=== PATIENT | male | born 1940 | race Caucasian/White ===

== ENCOUNTER → 2018-01-04 | Outpatient (CLI) | payer MEDICARE ==
[~2018-01-04] MED LIST: ALPR.25; ALPR.5 PO; ASPI81CH PO; ATOR20 PO; Aspirin325 MG PO; CLOP75 PO; CYCL10 PO; ESCI10 PO; GI COCKTAIL PO; IRBESARTAN300 MG PO; LANS30EC PO; METO25 PO; NAC600 MG PO; NAPR500ERA PO; NITR.4SL SL; Plavix75 MG PO
== END | disposition home or self-care (01) ==
LOC: PLD 13:35 → LAB SHORT 13:35
DX: L57.0 Actinic keratosis (principal)
CPT/HCPCS: 88305

== ENCOUNTER → 2019-03-20 | Outpatient (CLI) | payer MEDICARE | END | disposition home or self-care (01) | LOC: LAB SHORT 11:51 → PLD 11:51 | DX: L57.0 Actinic keratosis (principal) | CPT/HCPCS: 88305 ==

== ENCOUNTER → 2020-10-08 | Outpatient (CLI) | payer MEDICARE | END | disposition home or self-care (01) | LOC: PLD 11:19 → LAB SHORT 11:19 | DX: D04.4 Carcinoma in situ of skin of scalp and neck (principal); L57.0 Actinic keratosis; L57.8 Other skin changes due to chronic exposure to nonionizing radiation | CPT/HCPCS: 88305 ==

== ENCOUNTER → 2021-10-28 | Outpatient (CLI) | payer MEDICARE | END | disposition home or self-care (01) | LOC: LAB SHORT 11:52 | DX: D04.62 Carcinoma in situ of skin of left upper limb, including shoulder (principal) | CPT/HCPCS: 88305 ==

== ENCOUNTER → 2021-11-17 | Outpatient (CLI) | payer MEDICARE | END | disposition home or self-care (01) | LOC: LAB SHORT 07:19 | DX: D04.62 Carcinoma in situ of skin of left upper limb, including shoulder (principal); D22.62 Melanocytic nevi of left upper limb, including shoulder; Z98.890 Other specified postprocedural states | CPT/HCPCS: 88305 ==

== ENCOUNTER → 2024-07-02 | Outpatient (CLI) | payer MEDICARE | END | disposition home or self-care (01) | LOC: LAB 10:41 → LAB SHORT 10:41 | DX: R30.0 Dysuria (principal) | CPT/HCPCS: 87086 ==

== ENCOUNTER 2025-02-23 12:24 | Day surgery (SDC) | payer MEDICARE ==
[2025-02-23] VITALS (14 sets, daily range): BP systolic 117–141; BP diastolic 39–78
[~2025-02-23] VITALS: Ht 172.7 cm; Wt 94.2 kg
[2025-02-23] MEDS ORDERED: Lactated Ringer's 1,000 ML IV SCH (12:35)
[2025-02-23] MEDS ORDERED: ASPI81CH PO (12:38)
[2025-02-23] MEDS ORDERED: PANT40 PO (12:40)
[2025-02-23] MEDS ORDERED: CeFAZolin Sodium 2,000 MG in NS 100 ML IV SCH (13:15)
--- NOTE | 2025-02-23 13:42 | NUR ---
Ambulatory in Day Surgery History, Chart, Medications and Allergies reviewed before start of procedure.Pre-Op teaching done. Pt verbalizes understanding. Patient States Post-Procedure ride home has been arranged.
[2025-02-23] MEDS ORDERED: propofoL 20 ML IV ONE ×3 (13:58→15:33)
[2025-02-23] MEDS ORDERED: FentaNYL Citrate 50 MCG/ML 2 ML Injection ONE ×3 (13:58→16:05)
[2025-02-23] MEDS ORDERED: Sugammadex Sodium 200 MG/2ML SDV (100 MG/ML) ONE (13:58)
[2025-02-23] MEDS ORDERED: Bupivacaine 0.5% HCl 5 MG/ML 30MLVIAL ONE (13:59)
[2025-02-23] MEDS ORDERED: Rocuronium Bromide 10 MG/ML 5ML Injection IV ONE (14:00)
[2025-02-23] MEDS ORDERED: HYDROmorphone HCl/Pf 1MG SYR IV PRN ×2 (14:35→14:40)
[2025-02-23] MEDS ORDERED: FentaNYL Citrate 50 MCG/ML 2 ML Injection IV PRN ×2 (14:35→14:40)
[2025-02-23] MEDS ORDERED: Ondansetron HCl 2 MG / ML 2ML Vial IV PRN (14:40)
[2025-02-23] MEDS ORDERED: Ondansetron HCl 2 MG / ML 2ML Vial ONE (15:01)
[2025-02-23] MEDS ORDERED: Lidocaine HCl 2% 20 ML MDV ONE (15:01)
[2025-02-23] MEDS ORDERED: Metoclopramide HCl 5MG / ML 2ML Vial ONE (15:01)
[2025-02-23] MEDS ORDERED: Esmolol HCL 10 MG/ML 10ML VIAL ONE (15:02)
[2025-02-23] MEDS ORDERED: OxyCODONE 5 mg/Acetamin 325 mg TABLET PO PRN (16:20)
--- NOTE | 2025-02-23 17:25 | NUR ---
DISCHARGE NOTE PT A&OX4, BREATHING RA, TOLERATING PO INTAKE. PO PAIN MEDICATION GIVEN PER MD ORDERS. ABDOMINAL BINDER AND ICE IN PLACE. AT BEDSIDE. Discharge instructions reviewed with patient. Patient verbalizes understanding. Copy given to patient to take home. Dressing to procedure site clean, dry, intact with no visible drainage, swelling, erythema or bruising noted. Discharged via wheelchair to private car for ride home.
== END 2025-02-23 17:25 | disposition home or self-care (01) ==
LOC: ORD 12:24 → ORSCMMR 12:24 → ORD 12:27 → ORSCMMR 17:25 → ORD 17:25
PROVIDERS: Surgery
PROC: 0WUF4JZ Supplement Abdominal Wall with Synthetic Substitute, Percutaneous Endoscopic Approach (ICD-10-PCS; principal; 2025-02-23 14:00)
PROC: 8E0W4CZ Robotic Assisted Procedure of Trunk Region, Percutaneous Endoscopic Approach (ICD-10-PCS; principal; 2025-02-23 14:00)
PROC: 3E0T3BZ Introduction of Anesthetic Agent into Peripheral Nerves and Plexi, Percutaneous Approach (ICD-10-PCS; principal; 2025-02-23 14:00)
DX: K42.0 Umbilical hernia with obstruction, without gangrene (principal); K43.6 Other and unspecified ventral hernia with obstruction, without gangrene; K66.0 Peritoneal adhesions (postprocedural) (postinfection); I10 Essential (primary) hypertension; I25.10 Atherosclerotic heart disease of native coronary artery without angina pectoris; K21.9 Gastro-esophageal reflux disease without esophagitis; Z79.899 Other long term (current) drug therapy; E66.9 Obesity, unspecified; Z68.31 Body mass index [BMI] 31.0-31.9, adult; Z87.891 Personal history of nicotine dependence
CPT/HCPCS: A9270; C1781; J0690; J2405; J2704; J2765; J3010; J7120